=== PATIENT | male | born 1945 | race Caucasian/White ===

== ENCOUNTER 2019-04-23 06:00 | Outpatient (RCR) | payer MEDICARE, OTHER, SELFPAY | END 2019-05-08 00:01 | LOC: SPT 06:00 | PROVIDERS: Visit Provider Student in an Organized Health Care Education/Training Program | DX: R42 Dizziness and giddiness (principal) | CPT/HCPCS: 97112; 97162 ==

== ENCOUNTER 2019-05-09 06:00 | Outpatient (RCR) | payer MEDICARE, OTHER, SELFPAY | END 2019-06-08 23:59 | disposition home or self-care (01) | LOC: SPT 06:00 | PROVIDERS: Visit Provider Student in an Organized Health Care Education/Training Program | DX: H81.399 Other peripheral vertigo, unspecified ear (principal) | CPT/HCPCS: 95992 ==

== ENCOUNTER 2020-07-08 10:53 | Outpatient (CLI) | payer MEDICARE, OTHER, SELFPAY ==
--- NOTE | 2020-07-08 11:45 | MR_ITS ---
WS: [id number] MRI RIGHT SHOULDER HISTORY: M25.511 - Pain in right shoulder COMPARISON: 06/16/2020 TECHNIQUE: Multiplanar sequences of the shoulder joint are submitted. Moderate to severe AC joint hypertrophy. Osteophytes from the distal clavicle encroaches upon the sup raspinatus tendon and muscle. Degenerative changes with loss of the normal cortex along the AC joint. Increased fluid and soft tissue through the AC ligament. Small amount of fluid in the subacromial an d subdeltoid bursa. There is a very small osteophyte from the distal undersurface of the acromion wit h very mild encroachment upon the supraspinatus tendon. No os acromion. Biceps tendon is not identifi ed at the bicipital groove. Full-thickness tear with retraction of the supraspinatus tendon. Tendon is retracted to the superior humeral head. Focal full-thickness tear in the subscapularis tendon. There is a large amount of fluid extending along the tendon sheath. Normal infraspinatus tendon. There is fluid adjacent to the dista l teres minor tendon but no tear is identified. No significant muscle atrophy. Tear within the anteri or labrum. MR/MR shoulder RT wo con* [id number] IMPRESSION: 1. Full-thickness tears involving the supraspinatus and subscapularis tendons distally. 2. Dislocated biceps tendon. 3. Moderate to severe AC joint hypertrophy with encroachment upon the supraspi natus tendon and muscle. 4. Moderate glenohumeral joint arthritis. 5. Anterior labral tear.
== END 2020-07-08 10:54 | disposition home or self-care (01) ==
LOC: RADSHAW 10:55
PROVIDERS: PCP Student in an Organized Health Care Education/Training Program; Visit Provider Orthopaedic Surgery
DX: S43.491A Other sprain of right shoulder joint, initial encounter (principal); X58.XXXA Exposure to other specified factors, initial encounter; M13.811 Other specified arthritis, right shoulder; M75.101 Unspecified rotator cuff tear or rupture of right shoulder, not specified as traumatic
CPT/HCPCS: 73221

== ENCOUNTER → 2020-07-18 14:03 | Outpatient (BNVA) | payer MEDICARE, OTHER, SELFPAY | PROVIDERS: PCP Student in an Organized Health Care Education/Training Program; Visit Provider Orthopaedic Surgery | DX: Z01.818 Encounter for other preprocedural examination (principal); Z20.822 Contact with and (suspected) exposure to COVID-19 | CPT/HCPCS: 87635 ==

== ENCOUNTER 2020-07-24 09:41 | Day surgery (SDC) | payer MEDICARE, OTHER, SELFPAY ==
[2020-07-23 11:04] VITALS: BMI 27.9
[2020-07-24] VITALS (9 sets, daily range): BP systolic 128–175; BP diastolic 62–81; PULSE 78–97; RESP 12–21; TEMP 36.2–36.7; O2SAT 92–97
[2020-07-24 10:22] LABS: Glucose Point of Care 116 mg/dL (70-110)
[2020-07-24] MEDS: acetaminophen 500 mg Tablet 1000 MG PO (10:26)
[2020-07-24] MEDS: sodium chloride 0.9% 1,000 ML 30 ML IV (10:26)
--- NOTE | 2020-07-24 10:55 | ANES.PREANE2 ---
Pre-Anesthetic Assessment Pre-Anesthetic Assessment: Height/Weight: Height 1.73 m Weight 83.461 kg Temp Pulse Resp BP Pulse Ox 97.6 F 86 18 141/80 97 07/24/20 10:04 07/24/20 10:04 07/24/20 10:04 07/24/20 10:04 07/24/20 10:04 Preop Diagnosis: Rotator cuff tear right shoulder Proposed Procedure: Operation Date: 07/24/20 11:50 Proposed Procedures p Rotator Cuff Repair [id number] S43.421A(Right) - Salas Macias MD s Shoulder Arthroscopy(Right) - Salas Macias MD Was Beta Geetha taken within 24 hours: N/A Was Clonidine taken within 24 hours: N/A Last intake: Intake Last Liquid Date 07/23/20 Last Liquid Time 22:00 Last Solid Date 07/23/20 Last Solid Time 18:00 Social: Social History: No alcohol and No tobacco Exam: Pre-Anes Outpt Exam: alert, oriented x 3, clear to auscultation bilaterally and regular rate & rhythm Airway: Submandibular: WNL Cervical ROM: WNL MP: 3 Dentition: Full Pulmonary: Pulmonary: Sleep apnea CV/HEM: CV/HEM: HTN Metabolic: Metabolic: DM Anesthetic Plan: ASA status: 3 Anesthesia: General and Regional (specify below) (Right interscalene) Risk of > 500 ml blood loss (7ml/kg in children): No Meds/Allergies Current Medications: Current Medications Generic Name Dose Route Start Last Admin Trade Name Freq PRN Reason Stop Dose Admin Sodium Chloride 1,000 mls @ 30 ml s/hr 07/24/20 10:00 07/24/20 10:26 Sodium Chloride 0.9% IV 07/25/20 09:59 30 mls/hr .Q24H SCOUT Administration PFSH Anesthesia PFSH: Social History Smoking and tobacco status: never smoked Alcohol intake: never Data Anesthesia Other Labs: Laboratory Results - last 48 hr 07/24/20 10:20 POC Glucose 116 H Cardiac Studies: No Data to Display
[2020-07-24] MEDS: midazolam 1 mg/mL INJ 5 ML 5 MG IVP (12:00)
--- NOTE | 2020-07-24 12:22 | ANES.PROC ---
Anesthesia Procedures Procedure/Date: 07/24/20 Nerve Block ^: Nerve Block 1: Main Anesthesia: general anesthesia Time Out Performed: Yes Consent: requested by attending/covering physician, from patient, risks and benefits reviewed and patient agrees to proceed Nerve block location: interscalene (right) Anesthesia monitors applied: pulse oximetry, EKG, BP cuff and oxygen Anesthetic Used: ropivicaine 0.5% Amount of anesthesia used (mL): 30 Ultrasound used to: recognize landmarks Nerve Stimulator Used?: No Interscalene/Femoral BLK: 2 stimuplex 22 g needle used for position and inplane approach Injection: neg aspiration of heme Patient Tolerated Procedure: well Complications: none
[2020-07-24] MEDS: EPINEPHrine 1 mg/mL INJ 2 MG XX (16:18)
--- NOTE | 2020-07-24 17:43 | W.PM.OPSUD ---
Surgery/Procedure H&P Update DATE OF PROCEDURE: July 24, 2020 DATE H&P PERFORMED: 07/16/20 PREOP DIAGNOSIS: Rotator cuff tear right shoulder PLANNED PROCEDURE: Operation Date: 07/24/20 11:50 Proposed Procedures p Rotator Cuff Repair [id number] S43.421A(Right) - Salas Macias MD s Shoulder Arthroscopy(Right) - Salas Macias MD
[2020-07-24 17:45] LABS: Glucose Point of Care 76 mg/dL (70-110)
--- NOTE | 2020-07-24 17:47 | PM.OP ---
Operative Report Date of procedure: July 24, 2020 Pre-op Diagnosis: Rotator cuff tear right shoulder Post-op diagnosis: same Post-op Diagnosis: Tear right rotator cuff, instability and partial tearing right biceps tendon, impingement Post-op Findings: As above Procedure Done: Arthroscopic repair right rotator cuff, arthroscopic right subacromial decompression, arthroscopic biceps tenodesis. Implants: 5.0 [employer] Helicoil x1, 4.0 [employer] Helicoil, Q fix anchors x2 Pathology: none sent Findings: The patient had a full-thickness tear of his rotator cuff beginning at the bicep tendon extending posteriorly approximately a centimeter half with a centimeter tendinous retraction. He had prominent anterior spurring of his acromion. He had an exposed biceps tendon with instability. No chondromalacia or significant labral tearing was noted. Condition: stable Disposition: PACU Procedure: The patient was taken to the operating room and given 2 g of Ancef. He was prepped and draped in a lateral position with his right arm in 15 pounds of traction. A timeout was performed. A posterior portal was made 2 cm inferior and medial to the posterior corner of the acromion. A scope cannula and trocar driven into the glenohumeral joint. An 8 mm cannula was placed anteriorly. The diagnostic portion of glenohumeral arthroscopy was performed. The rotator cuff tear was identified. No significant degenerative changes were seen in the glenohumeral joint and his labral attachments appeared healthy. This scope was then redirected into the subacromial space. Anterior and lateral portal were fashion. Utilizing the [employer] Werewolf probe bursal tissue was removed. The leading edge of acromion was outlined. A 5.5 mm acromionizer was introduced through the lateral portal and approximately 4 mm of anterior and inferior acromion were removed converting the acromion to type I morphology. The biceps tendon was then visualized. It was clearly visible beneath the tear with some partial tearing involving perhaps 30%. As it was uncovered in onset and potentially unstable I decision was made to proceed with a biceps tenodesis. Through an anterior lateral portal a Q fix anchor was driven into the proximal bicipital groove. Loop from one side to the suture was passed around the tendon and the free end of that suture brought through the loop. The tendon was secured in a luggage tag fashion tightly drawing it down to the region of biceps. A second Q fix was placed just medial reinforcing repair. Working through the tear the medial biceps was resected from the superior labrum. Final attention was then paid to the rotator cuff. A 5.0 mm [employer] Helicoil l was placed in the posterior medial debrided the greater tuberosity. A [employer]hew FirstPass suture was used to shuttle 1 Ultratape through the far posterior cuff approximately 8 mm from his edge and a second loop approximately 5 mm anterior to that. A 4.0 mm [employer] Helicoil anchor was then placed anterior medially and 2 sutures passed in identical fashion. The sutures from each anchor were secured with a sliding Noel knot alternating half hitches bringing the medial cuff to bone. All 4 sutures were then brought out the lateral portal. They were attached to the multifix anchor which was placed posteriorly and laterally bringing the lateral edge of rotator cuff to bone. The repair was probed and stable. Portals were closed with 3-0 Prolene. Sterile dressings were applied. The patient was placed in a sling, extubated, and taken to recovery room in stable condition. Indication
--- NOTE | 2020-07-24 18:06 | ANE.PACU2 ---
Inpatient post-anesthesia follow up: Airway intact: Yes Vital signs: Temperature 97.1 F Pulse Rate 88 Respiratory Rate 16 Blood Pressure 147/62 Pulse Oximetry 94 Oxygen Delivery Me thod Room Air Oxygen Flow Rate Fraction of Inspir ed Oxygen Hydration adequate: Yes Nausea and vomiting: No Pain level: 1 Mental status: Baseline
[2020-07-24] MEDS: oxyCODONE-APAP 5-325 mg Tablet 1 TAB PO (18:40)
== END 2020-07-24 18:50 | disposition home or self-care (01) ==
PROVIDERS: PCP Student in an Organized Health Care Education/Training Program; Visit Provider Orthopaedic Surgery
PROC: (CPT 29826; principal; 2020-07-24 11:50)
PROC: (CPT 29805; 2020-07-24 11:50)
DX: M75.101 Unspecified rotator cuff tear or rupture of right shoulder, not specified as traumatic (principal); G47.30 Sleep apnea, unspecified; I10 Essential (primary) hypertension; E11.9 Type 2 diabetes mellitus without complications; Z79.82 Long term (current) use of aspirin
CPT/HCPCS: 29826; 29827; 29828; 36416; 64415; 76942; 82962; C1713; J0171; J0690; J2250; J2704; J2795; J3010; J3490; J7030